=== PATIENT | female | born 1975 | race Caucasian/White ===

== ENCOUNTER → 2018-08-31 07:45 | Outpatient (CLI) | payer OTHER, SELFPAY ==
--- NOTE | 2018-08-31 | DI.MG.S_ITS ---
BILATERAL DIGITAL SCREENING MAMMOGRAM 3D/2D WITH CAD: 08/31/2018 CLINICAL: Routine screening. Comparison is made to exams dated: 08/19/2016 mammogram, 07/07/2015 mammogram - [facility], and 07/02/2013 mammogram - [facility]. There are scattered fibroglandular elements in both breasts. Current study was also evaluated with a Computer Aided Detection (CAD) system. No significant masses, calcifications, or other findings are seen in either breast. There has been no significant interval change. IMPRESSION: NEGATIVE There is no mammographic evidence of malignancy. A 1 year screening mammogram is recommended. This exam was interpreted at Station ID: [id number]. NOTE: For mammograms, a report in lay terms will be sent to the patient. Approximately 15% of breast malignancies will not be visualized mammographically. In the management of a palpable breast mass, a negative mammogram must not discourage biopsy of a clinically suspicious lesion. Electronically Signed By: Lluvia brown/kiel:08/31/2018 09:08:01 letter sent: Normal Exam ACR BI-RADS Category 1: Negative 3341F
== END ==
PROVIDERS: Family Provider Nurse Practitioner Family; PCP Family Medicine; Visit Provider Family Medicine
DX: Z12.31 Encounter for screening mammogram for malignant neoplasm of breast (principal)
CPT/HCPCS: 77063; 77067

== ENCOUNTER → 2019-11-04 13:41 | Outpatient (CLI) | payer OTHER, SELFPAY ==
--- NOTE | 2019-11-04 13:42 | DI.MG.S_ITS ---
BILATERAL DIGITAL DIAGNOSTIC MAMMOGRAM 3D/2D: 11/04/2019 CLINICAL: Left breast pain. Comparison is made to exams dated: 08/31/2018 mammogram, 08/19/2016 mammogram, 07/07/2015 mammogram - [facility], 07/02/2013 mammogram - [facility], and 08/13/2012 mammogram - [facility]. There are scattered fibroglandular elements in both breasts. There is a 0.6 cm round asymmetry in the left breast posterior depth central to the nipple seen on the mediolateral oblique view only. This is seen in additional views. This is more prominent. No other significant masses, calcifications, or other findings are seen in either breast. IMPRESSION: INCOMPLETE: NEEDS ADDITIONAL IMAGING EVALUATION 1) No mass or significant calcifications in the region of focal pain in the left breast. A targeted ultrasound is recommended and will immediately follow. 2) The 0.6 cm round asymmetry in the left breast is indeterminate. A targeted ultrasound is recommended and will immediately follow. This exam was interpreted at Station ID: [id number]. NOTE: For mammograms, a report in lay terms will be sent to the patient. Approximately 15% of breast malignancies will not be visualized mammographically. In the management of a palpable breast mass, a negative mammogram must not discourage biopsy of a clinically suspicious lesion. Electronically Signed By: Juan C Betancur M.D. slc/:11/04/2019 15:33:25 ACR BI-RADS Category 0: Incomplete 3340F
--- NOTE | 2019-11-04 13:42 | DI.US.S_ITS ---
LIMITED ULTRASOUND OF LEFT BREAST: 11/04/2019 CLINICAL: Focal left breast pain. Comparison is made to exams dated: 11/04/2019 mammogram, 08/31/2018 mammogram, 08/19/2016 mammogram, 07/07/2015 mammogram - [facility], and 07/02/2013 mammogram - [facility]. Color flow and real-time ultrasound of the left breast 3 o'clock, and central/ retroareolar regions were performed. Martins scale images of the real-time examination were reviewed. There is a 0.7 cm x 0.5 cm x 0.2 cm oval cyst with a septated internal wall in the left breast at 3 o'clock anterior depth 2 cm from the nipple. This oval cyst is hypoechoic with a well-defined boundary and no posterior acoustic shadowing or enhancement. This correlates to the reported pain. Color flow imaging demonstrates that there is no vascularity present. This is not seen on diagnostic mammogram. No sonographic abnormality in the left breast central to the nipple posterior depth in the region of the asymmetry seen on mammogram. IMPRESSION: PROBABLY BENIGN 1) The 0.7 cm oval cyst in the left breast at 3 o'clock anterior depth in the region of focal pain is consistent with a complicated cyst and is probably benign. 2) No sonographic abnormality in the left breast central to the nipple posterior depth in the region of the asymmetry seen on mammogram. A follow-up left mammogram and an ultrasound in 6 months is recommended to demonstrate stability. This exam was interpreted at Station ID: [id number]. Electronically Signed By: Juan C Betancur M.D. [facility] [place]/:11/04/2019 15:46:52 letter sent: Followup Recommended Ultrasound BI-RADS: 3 Probably benign
== END ==
PROVIDERS: Family Provider Nurse Practitioner Family; PCP Family Medicine; Referring Provider Family Medicine; Visit Provider Family Medicine
DX: R92.8 Other abnormal and inconclusive findings on diagnostic imaging of breast (principal); N64.4 Mastodynia; N60.01 Solitary cyst of right breast
CPT/HCPCS: 76642; 77066; G0279

== ENCOUNTER → 2020-06-03 14:13 | Outpatient (CLI) | payer OTHER, SELFPAY ==
--- NOTE | 2020-06-03 14:16 | DI.MG.S_ITS ---
UNILATERAL LEFT DIGITAL DIAGNOSTIC MAMMOGRAM 3D/2D SHORT-TERM FOLLOW-UP: 06/03/2020 CLINICAL: Patient returns for a 6 month follow up of the left breast. Comparison is made to exams dated: 11/04/2019 mammogram, 08/31/2018 mammogram, and 08/19/2016 mammogram - [facility]. There are scattered fibroglandular elements in left breast. Redemonstration of previously described 0.6 cm round asymmetry in the left breast posterior depth central to the nipple seen on the mediolateral oblique view only. This is less prominent and was not seen on the prior ultrasound. Additionally, previously described complicated cyst on comparison ultrasound was not seen mammographically. No findings today at the 3:00 axis, anterior depth. No other significant masses or calcifications are seen in the breast. IMPRESSION: INCOMPLETE: NEEDS ADDITIONAL IMAGING EVALUATION The previously described 0.6 cm round asymmetry in the left breast is again noted and resembles a cyst, fibroglandular tissue, or a lymph node and is indeterminate. An ultrasound is recommended for further evaluation and is scheduled to immediately follow this examination. Also, the ultrasound will be needed to evaluate previously described complicated cyst at the 3:00 axis, anterior depth. This exam was interpreted at Station ID: [id number]. NOTE: For mammograms, a report in lay terms will be sent to the patient. Approximately 15% of breast malignancies will not be visualized mammographically. In the management of a palpable breast mass, a negative mammogram must not discourage biopsy of a clinically suspicious lesion. Electronically Signed By: Hi Leary M.D. aty/:06/03/2020 15:13:09 ACR BI-RADS Category 0: Incomplete 3340F
--- NOTE | 2020-06-03 14:16 | DI.US.S_ITS ---
ULTRASOUND OF LEFT BREAST: 06/03/2020 CLINICAL: Patient returns today to evaluate a focal asymmetry in the left breast. Comparison is made to exams dated: 06/03/2020 mammogram, 11/04/2019 ultrasound, 11/04/2019 mammogram, 08/31/2018 mammogram, 08/19/2016 mammogram, and 07/07/2015 mammogram - [facility]. Color flow and real-time ultrasound of the left breast were performed. Martins scale images of the real-time examination were reviewed. There is a 0.5 cm x 0.4 cm x 0.2 cm oval cyst with a septated internal wall in the left breast at 3 o'clock anterior depth 2 cm from the nipple. This oval cyst is hypoechoic with a well-defined boundary and no posterior acoustic shadowing or enhancement. This abnormality is decreased in size and correlates to the reported pain. Color flow imaging demonstrates that there is no vascularity present. As before, there is no sonographic correlate or abnormality seen in the posterior left breast for the subcentimeter asymmetry seen only on the mediolateral oblique and lateral views central to the nipple posterior depth. IMPRESSION: PROBABLY BENIGN The 0.5 cm x 0.4 cm x 0.2 cm oval cyst in the left breast at 3 o'clock anterior depth is consistent with a complicated cyst and is probably benign. As before, there is no sonographic correlate or abnormality seen in the posterior left breast for the subcentimeter asymmetry seen only on the mediolateral oblique and lateral views central to the nipple posterior depth. A follow-up left mammogram and a left ultrasound in 6 months is recommended to demonstrate stability. The patient will also be due for screening mammogram of the contralateral breast at that time. Findings and recommendations were conveyed to the patient during today's evaluation. This exam was interpreted at Station ID: [id number]. Electronically Signed By: Hi Leary M.D. aty/:06/03/2020 16:13:27 letter sent: Followup Recommended Ultrasound BI-RADS: 3 Probably benign
== END ==
PROVIDERS: Family Provider Nurse Practitioner Family; PCP Family Medicine; Referring Provider Family Medicine; Visit Provider Family Medicine
DX: R92.8 Other abnormal and inconclusive findings on diagnostic imaging of breast (principal); N60.02 Solitary cyst of left breast
CPT/HCPCS: 76642; 77065; G0279

== ENCOUNTER → 2020-08-20 07:58 | Outpatient (CLI) | payer OTHER, SELFPAY ==
[2020-08-20] MEDS: COVID-19 VACC, Ad26(JANSSEN)/PF 0.5 ML IM (08:04)
== END ==
PROVIDERS: Family Provider Nurse Practitioner Family; PCP Family Medicine; Visit Provider Internal Medicine
DX: Z23 Encounter for immunization (principal)
CPT/HCPCS: 0031A; 91303

== ENCOUNTER → 2021-01-06 10:16 | Outpatient (CLI) | payer OTHER, SELFPAY ==
[2021-01-06 11:34] LABS: COVID19 -Nasal RAPID Negative (Negative)
== END ==
PROVIDERS: Family Provider Nurse Practitioner Family; PCP Family Medicine; Visit Provider Physician Assistant
DX: Z20.822 Contact with and (suspected) exposure to COVID-19 (principal); J02.9 Acute pharyngitis, unspecified
CPT/HCPCS: 87635

== ENCOUNTER → 2021-01-14 08:40 | Outpatient (CLI) | payer OTHER, SELFPAY ==
--- NOTE | 2021-01-14 08:41 | DI.US.S_ITS ---
ULTRASOUND OF LEFT BREAST: 01/14/2021 CLINICAL: 6 month follow-up of cysts. Comparison is made to exams dated: 01/14/2021 mammogram, 06/03/2020 ultrasound, 06/03/2020 mammogram, 11/04/2019 ultrasound, 11/04/2019 mammogram, and 08/31/2018 mammogram - [facility]. Color flow and real-time ultrasound of the left breast were performed. Martins scale images of the real-time examination were reviewed. There is a new 0.4 cm x 0.3 cm x 0.3 cm oval cyst in the left breast at 3 o'clock anterior depth 2 cm from the nipple. This oval cyst is essentially anechoic with minimal internal echoes. This was not seen on the prior mammogram. Color flow imaging demonstrates that there is no vascularity present. The previously described 0.5 cm x 0.4 cm x 0.2 cm oval cyst with a septated internal wall in the left breast at 3 o'clock middle depth 2 cm from the nipple is no longer seen and is consistent with a benign process. Additionally, there is a new 0.5 cm x 0.3 cm x 0.5 cm oval cyst in the left breast at 11 o'clock middle depth 4 cm from the nipple. This oval cyst is anechoic with a well-defined boundary and posterior acoustic enhancement. This correlates with mammography findings. Color flow imaging demonstrates that there is no vascularity present. IMPRESSION: PROBABLY BENIGN The new 0.4 cm x 0.3 cm x 0.3 cm oval cyst in the left breast at 3 o'clock anterior depth is consistent with a complicated cyst and is probably benign. The 0.5 cm x 0.3 cm x 0.5 cm oval simple cyst in the left breast at 11 o'clock middle depth correlates with today's mammographic findings and is consistent with a benign simple cyst. A follow-up bilateral mammogram and a left ultrasound in 12 months is recommended to demonstrate stability versus resolution. Findings and recommendations were conveyed to the patient during today's evaluation. This exam was interpreted at Station ID: [id number]. Electronically Signed By: Hi Leary M.D. aty/:01/14/2021 11:09:33 letter sent: Followup Recommended Ultrasound BI-RADS: 3 Probably benign
--- NOTE | 2021-01-14 08:41 | DI.MG.S_ITS ---
BILATERAL DIGITAL DIAGNOSTIC MAMMOGRAM 3D/2D: 01/14/2021 CLINICAL: Short term follow up of the left breast, due for bilateral imaging. Comparison is made to exams dated: 06/03/2020 ultrasound, 06/03/2020 mammogram, 11/04/2019 ultrasound, and 11/04/2019 mammogram - [facility]. There are scattered fibroglandular elements in both breasts. The previously described 0.6 cm round asymmetry in the left breast posterior depth central to the nipple seen on the mediolateral oblique view only. This is less prominent and decreased in size. There also is a 0.7 cm oval equal density mass in the left breast at 11 o'clock middle depth. This is more prominent and increased in size. No other significant masses, calcifications, or other findings are seen in either breast. IMPRESSION: INCOMPLETE: NEEDS ADDITIONAL IMAGING EVALUATION The 0.6 cm round asymmetry in the left breast posterior depth central to the nipple seen on the mediolateral oblique view only likely correlates with a complicated cyst seen on comparison ultrasounds but remains indeterminate. An ultrasound is recommended for further evaluation and is scheduled to immediately follow this examination. The 0.7 cm oval equal density mass in the left breast at 11 o'clock middle depth resembles a cyst or a lymph node and is indeterminate. An ultrasound is recommended for further evaluation and is scheduled to immediately follow this examination. This exam was interpreted at Station ID: [id number]. NOTE: For mammograms, a report in lay terms will be sent to the patient. Approximately 15% of breast malignancies will not be visualized mammographically. In the management of a palpable breast mass, a negative mammogram must not discourage biopsy of a clinically suspicious lesion. Electronically Signed By: Hi Leary M.D. aty/:01/14/2021 09:32:37 ACR BI-RADS Category 0: Incomplete 3340F
== END ==
PROVIDERS: Family Provider Nurse Practitioner Family; PCP Family Medicine; Referring Provider Family Medicine; Visit Provider Family Medicine
DX: R92.8 Other abnormal and inconclusive findings on diagnostic imaging of breast (principal); N60.02 Solitary cyst of left breast
CPT/HCPCS: 76642; 77066; G0279

== ENCOUNTER → 2021-10-25 09:20 | Outpatient (CLI) | payer OTHER, SELFPAY ==
[2021-10-25 10:57] LABS: COVID19 -Nasal RAPID Negative (Negative)
== END ==
PROVIDERS: Family Provider Nurse Practitioner Family; PCP Family Medicine; Visit Provider Surgery
DX: Z20.822 Contact with and (suspected) exposure to COVID-19 (principal); Z01.812 Encounter for preprocedural laboratory examination
CPT/HCPCS: 87635; C9803

== ENCOUNTER 2021-10-26 10:52 | Day surgery (SDC) | payer OTHER, SELFPAY ==
[2021-10-26 11:07] VITALS: BMI 19.8
[2021-10-26 11:19] VITALS: BP 121/67; PULSE 73; RESP 16; TEMP 36.6; O2SAT 100
[2021-10-26] MEDS: LACTATED RINGERS 1,000 ML 200 ML IV (11:21)
--- NOTE | 2021-10-26 11:33 | PM.HP.1 ---
History of Present Illness History of Present Illness Date Patient Seen: 10/26/21 Time Patient Seen: 11:33 Chief complaint: SDC Narrative: The patient presents for colorectal screening. They have never had any previous examination for such. No personal or family history of colon cancer. On further history denies any recent gastrointestinal symptoms. No nausea, vomiting, abdominal pain, loss of appetite, unexplained weight loss, change in bowel habits, diarrhea, constipation, melena, hematochezia, or bright red blood per rectum. 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) Surgical History Anesthesia History of removal of cyst (~2013) Family & Social History Family History Father Cancer PKD (polycystic kidney disease) Mother Hypertension Mental health problem Brother Mental health problem Brother PKD (polycystic kidney disease) Grandfather Cancer Grandfather PKD (polycystic kidney disease) Family/Other Mental health problem Social History: household members family,children Tobacco & Substance use: Smoking Status Never smoker alcohol intake current alcohol intake frequency a few times a week Substance Use Type does not use Meds Home Medications and Allergies Home Medications Medication Instructions Recorded Confirmed Type escitalopram oxalate 20 mg tablet 20 mg PO DAILY #90 tabs 07/07/21 10/26/21 Rx Allergies Allergy/AdvReac Type Severity Reaction Status Date / Time No Known Drug Allergies Allergy Verified 10/26/21 11:05 Exam Vital Signs (past 8 hours): - 10/26/21 11:19 Temperature 97.8 F Pulse Rate 73 Respiratory Rate 16 Blood Pressure 121/67 Pulse Oximetry 100 Oxygen Delivery Method Room Air Oxygen Delivery Method Room Air Narrative Exam Narrative: General adult woman alert oriented no Chest nonlabored respiration Extremities warm well perfused Assessment & Plan Assessment & Plan narrative: The patient requires colorectal screening and colonoscopy is recommended. Technical details were discussed. Risks, benefits, alternatives explained. Risks including but not limited to myocardial infarction, aspiration, bleeding, pain, missed lesion, incomplete examination, need for further radiographic studies, colonic perforation, and need for major abdominal surgery were discussed. All questions were answered to their satisfaction, and they are in agreement with this plan. Time Spent With Patient Critical Care time: I spent a total of [] minutes of critical care time on this patient's care today; this time is exclusive of procedural time.
[2021-10-26] MEDS: fentaNYL 250 MCG/5 ML INJ IV (12:09)
--- NOTE | 2021-10-26 12:09 | P.OP.COLON_ITS ---
Operative Date/Time/Diagnoses Date of procedure: 10/26/21 Time of procedure: 12:09 Pre-op diagnosis: Screening Post-op diagnosis: same Procedure & Clinicians Study performed: colonoscopy Same procedure as scheduled: Yes Indications: screening Surgeon: Cyrus Hess Procedure Notes Procedure in detail: Medications: Conscious sedation using 6mg IV midazolam and 150mcg IV of fentanyl The history and physical was performed/updated and the patient is ASA class is 2. The procedure was discussed in detail with the patient. Potential risks complications including infection, bleeding, missed diagnosis, perforation, need for surgery, and were explained. Their questions were answered and informed consent was obtained. Patient was brought to the procedure room and placed standard monitoring equipment. The patient's vital signs were monitored continuously throughout the entire procedure. Prior to starting time-out was performed. The patient was placed in the left lateral recumbent position. Procedural sedation was adminis tered. Examination began with a thorough inspection of the perianal area there was no evidence of fissures, fistulae, external hemorrhoids or cutaneous malignancy. The colonoscopy scope was then placed into the anal canal and was advanced to the cecum, which was identified by the ileocecal valve, the appendiceal orifice and the confluence of the taenia. The scope was then slowly withdrawn examining colon thoroughly in all directions, irrigating it of any residual stool. FINDINGS 1. Normal healthy colon 2. No masses or polyps The patient tolerated the procedure well. They will be discharged once criteria are met. The prep was of good/excellent quality. The withdrawl time was 7 minutes. The sedation time was 22minutes. Specimen(s): none sent Complications: none Impression: Normal colonoscopy Post-procedure Recommendations: Colonoscopy in 10 years Disposition: same day surgery
[2021-10-26] MEDS: MIDAZOLAM 5 MG/5 ML VIAL IV (12:10)
[2021-10-26 12:13] VITALS: BP 96/56; PULSE 58; RESP 12; TEMP 36.4; O2SAT 98
[2021-10-26 12:18] VITALS: BP 94/52; PULSE 56; RESP 12; O2SAT 99
[2021-10-26 12:23] VITALS: BP 96/58; PULSE 56; RESP 12; O2SAT 99
[2021-10-26 12:28] VITALS: BP 99/71; PULSE 64; RESP 16; O2SAT 99
== END 2021-10-26 12:49 | disposition home or self-care (01) ==
PROVIDERS: Family Provider Nurse Practitioner Family; PCP Family Medicine; Referring Provider Surgery; Visit Provider Surgery
PROC: 0DJD8ZZ Inspection of Lower Intestinal Tract, Via Natural or Artificial Opening Endoscopic (ICD-10-PCS; CPT 45378; principal; 2021-10-26 15:15)
DX: Z12.11 Encounter for screening for malignant neoplasm of colon (principal)
CPT/HCPCS: 45378; 45380; 99152; J2250; J3010

== ENCOUNTER → 2022-07-21 07:53 | Outpatient (CLI) | payer OTHER, SELFPAY ==
[2022-07-21 08:42] LABS: Add Manual Diff / Slide Review NO; Basophils Absolute Auto 100 /uL (0-100); Basophils Percent Auto 1.5 % (0-2); Eosinophils Absolute Auto 100 /uL (0-450); Eosinophils Percent Auto 4.1 % (2-4); Hematocrit 37.9 % (36-46); Hemoglobin 12.6 g/dL (12.0-16.0); Lymphocytes Absolute Auto 1400 /uL (1100-4500); Lymphocytes Percent Auto 38.1 % (25-40); Mean Corpuscular HGB Conc 33.1 % (30-36); Mean Corpuscular Hemoglobin 30.7 PG (26-34); Mean Corpuscular Volume 92.5 fL (80-100); Monocytes Absolute Auto 700 /uL (0-900); Monocytes Percent Auto 18.1 % (3-14); Neutrophils Absolute Auto 1400 /uL (1500-7000); Neutrophils Percent Auto 38.2 % (50-75); Platelet Count 219 X10^3/uL (150-400); Red Cell Distribution Width 13.4 % (11.6-14.8); White Blood Cell Count 3.6 X10^3/uL (4.5-11.0)
[2022-07-21 09:19] LABS: Alanine Aminotransferase 20 IU/L (<35); Albumin 4.1 g/dL (3.5-5.0); Albumin Globulin Ratio 1.5 (1.0-2.8); Alkaline Phosphatase 73 U/L (38-126); Aspartate Aminotransferase 32 IU/L (14-36); BUN Creatinine Ratio 14.5 (6-22); Bilirubin Total 0.4 mg/dL (0.2-1.3); Blood Urea Nitrogen 11 mg/dL (7-17); Calcium 8.9 mg/dL (8.4-10.2); Carbon Dioxide 27 mmol/L (22-32); Chloride 101 mmol/L (98-107); Cholesterol 214 mg/dL (140-199); Estimated Glomerular Filt Rate > 60 mL/min (>60); Globulin 2.8 g/dL (1.7-4.1); Glucose 83 mg/dL (70-100); HEMOLYSIS < 15 (0-50); Potassium 4.2 mmol/L (3.4-5.1); Sodium 133 mmol/L (137-145); Total Protein 6.9 g/dL (6.3-8.2); Triglycerides 49 mg/dL (35-150)
[2022-07-21 09:28] LABS: LDL Cholesterol Calculated 67 mg/dL (<100)
[2022-07-21 09:29] LABS: HDL Cholesterol 137 mg/dL (40-60)
[2022-07-21 09:50] LABS: Thyroid Stimulating Hormone 1.91 uIU/mL (0.47-4.68)
== END ==
PROVIDERS: Family Provider Nurse Practitioner Family; PCP Family Medicine; Referring Provider Family Medicine; Visit Provider Family Medicine
DX: Z00.00 Encounter for general adult medical examination without abnormal findings (principal); Z82.71 Family history of polycystic kidney
CPT/HCPCS: 36415; 80053; 80061; 84443; 85025

== ENCOUNTER → 2022-08-02 08:49 | Outpatient (CLI) | payer OTHER, SELFPAY ==
--- NOTE | 2022-08-02 08:50 | DI.MG.S_ITS ---
BILATERAL DIGITAL DIAGNOSTIC MAMMOGRAM 3D/2D SHORT-TERM FOLLOW-UP: 08/02/2022 CLINICAL: Short term follow of the left breast; Due Bilateral. Comparison is made to exams dated: 01/14/2021 mammogram, 06/03/2020 mammogram, and 11/04/2019 mammogram - [facility]. There are scattered areas of fibroglandular density in both breasts (category b / 25%-50% glandular tissue). There is a 0.6 cm round asymmetry in the left breast posterior depth central to the nipple seen on the mediolateral oblique view only. This is not significantly changed. There also is a 0.7 cm oval equal density mass in the left breast at 11 o'clock middle depth. This is not significantly changed. No other significant masses, calcifications, or other findings are seen in either breast. IMPRESSION: INCOMPLETE: NEEDS ADDITIONAL IMAGING EVALUATION The 0.6 cm round asymmetry in the left breast posterior depth central to the nipple seen on the mediolateral oblique view only is consistent with a cyst and is indeterminate. An ultrasound is recommended for further evaluation and is scheduled to immediately follow this examination. The 0.7 cm oval equal density mass in the left breast at 11 o'clock middle depth resembles a cyst or a lymph node and is indeterminate. An ultrasound is recommended for further evaluation and is scheduled to immediately follow this examination. Based on the Tyrer Cuzick model (a risk assessment model) the patient's lifetime risk is 9.5% and her 10 year risk is 2.0%. According to the ACR, ACS, and NCCN guidelines, an annual breast MRI exam along with mammogram is recommended if the patient's lifetime risk is 20% or greater. This exam was interpreted at Station ID: [id number]. NOTE: For mammograms, a report in lay terms will be sent to the patient. Approximately 15% of breast malignancies will not be visualized mammographically. In the management of a palpable breast mass, a negative mammogram must not discourage biopsy of a clinically suspicious lesion. Electronically Signed By: Hi Leary M.D. aty/:08/02/2022 09:19:05 ACR BI-RADS Category 0: Incomplete 3340F
--- NOTE | 2022-08-02 08:50 | DI.US.S_ITS ---
ULTRASOUND OF LEFT BREAST: 08/02/2022 CLINICAL: Late 12 month follow-up of cysts. Comparison is made to exams dated: 08/02/2022 mammogram, 01/14/2021 ultrasound, 01/14/2021 mammogram, 06/03/2020 ultrasound, 06/03/2020 mammogram, and 11/04/2019 ultrasound - [facility]. Color flow and real-time ultrasound of the left breast were performed. Martins scale images of the real-time examination were reviewed. There is a 0.4 cm x 0.2 cm x 0.3 cm oval cyst in the left breast at 3 o'clock anterior depth 2 cm from the nipple. This oval cyst is anechoic. This abnormality is decreased in size and less prominent and was not seen on the prior mammogram. Color flow imaging demonstrates that there is no vascularity present. There also is a 0.4 cm x 0.1 cm x 0.3 cm oval cyst in the left breast at 11 o'clock middle depth 4 cm from the nipple. This oval cyst is anechoic with a well-defined boundary and posterior acoustic enhancement. This abnormality is decreased in size and less prominent and correlates with mammography findings. Color flow imaging demonstrates that there is no vascularity present. IMPRESSION: BENIGN There is no sonographic evidence of malignancy. The 0.4 cm x 0.2 cm x 0.3 cm oval cyst in the left breast at 3 o'clock anterior depth is consistent with a complicated cyst and is benign. The 0.4 cm x 0.1 cm x 0.3 cm oval cyst in the left breast at 11 o'clock middle depth is consistent with a complicated cyst and is benign. Return to annual mammogram screening schedule is recommended. Findings and recommendations were conveyed to the patient during today's evaluation. This exam was interpreted at Station ID: [id number]. Electronically Signed By: Hi Leary M.D. aty/:08/02/2022 09:52:18 Ultrasound BI-RADS: 2 Benign
== END ==
PROVIDERS: Family Provider Nurse Practitioner Family; PCP Family Medicine; Referring Provider Family Medicine; Visit Provider Family Medicine
DX: R92.8 Other abnormal and inconclusive findings on diagnostic imaging of breast (principal); N60.02 Solitary cyst of left breast
CPT/HCPCS: 76642; 77066; G0279

== ENCOUNTER → 2023-02-17 08:12 | Outpatient (CLI) | payer OTHER, SELFPAY ==
[2023-02-17 09:06] LABS: Alanine Aminotransferase 21 IU/L (<35); Albumin 3.7 g/dL (3.5-5.0); Albumin Globulin Ratio 1.4 (1.0-2.8); Alkaline Phosphatase 63 U/L (38-126); Aspartate Aminotransferase 31 IU/L (14-36); BUN Creatinine Ratio 15.7 (6-22); Bilirubin Total 0.4 mg/dL (0.2-1.3); Blood Urea Nitrogen 11 mg/dL (7-17); Calcium 9.1 mg/dL (8.4-10.2); Carbon Dioxide 27 mmol/L (22-32); Chloride 103 mmol/L (98-107); Cholesterol 194 mg/dL (140-199); Estimated Glomerular Filt Rate > 60 mL/min (>60); Globulin 2.7 g/dL (1.7-4.1); Glucose 83 mg/dL (70-100); HDL Cholesterol 109 mg/dL (40-60); HEMOLYSIS < 15 (0-50); LDL Cholesterol Calculated 72 mg/dL (<100); Sodium 135 mmol/L (137-145); Total Protein 6.4 g/dL (6.3-8.2); Triglycerides 66 mg/dL (35-150)
== END ==
PROVIDERS: Family Provider Nurse Practitioner Family; PCP Family Medicine; Referring Provider Family Medicine; Visit Provider Family Medicine
DX: F32.9 Major depressive disorder, single episode, unspecified (principal); E78.00 Pure hypercholesterolemia, unspecified
CPT/HCPCS: 36415; 80053; 80061

== ENCOUNTER → 2023-08-04 14:46 | Outpatient (CLI) | payer OTHER, SELFPAY ==
--- NOTE | 2023-08-04 14:47 | DI.MG.S_ITS ---
BILATERAL DIGITAL SCREENING MAMMOGRAM 3D/2D WITH CAD: 08/04/2023 CLINICAL: Routine screening. Comparison is made to exams dated: 08/02/2022 mammogram, 01/14/2021 mammogram, 06/03/2020 mammogram, 11/04/2019 mammogram, and 08/31/2018 mammogram - [facility]. There are scattered areas of fibroglandular density in both breasts (category b / 25%-50% glandular tissue). Current study was also evaluated with a Computer Aided Detection (CAD) system. No significant masses, calcifications, or other findings are seen in either breast. There has been no significant interval change. IMPRESSION: NEGATIVE There is no mammographic evidence of malignancy. A 1 year screening mammogram is recommended. Based on the Tyrer Cuzick model (a risk assessment model) the patient's lifetime risk is 9.6% and her 10 year risk is 2.1%. According to the ACR, ACS, and NCCN guidelines, an annual breast MRI exam along with mammogram is recommended if the patient's lifetime risk is 20% or greater. This exam was interpreted at Station ID: [id number]. NOTE: For mammograms, a report in lay terms will be sent to the patient. Approximately 15% of breast malignancies will not be visualized mammographically. In the management of a palpable breast mass, a negative mammogram must not discourage biopsy of a clinically suspicious lesion. Electronically Signed By: Hi wilder/kiel:08/07/2023 07:11:00 letter sent: Normal Exam ACR BI-RADS Category 1: Negative 3341F
== END ==
LOC: MAMMO 14:47
PROVIDERS: Family Provider Nurse Practitioner Family; PCP Family Medicine; Referring Provider Family Medicine; Visit Provider Family Medicine
DX: Z12.31 Encounter for screening mammogram for malignant neoplasm of breast (principal); R92.323 Mammographic fibroglandular density, bilateral breasts
CPT/HCPCS: 77063; 77067

== ENCOUNTER → 2024-08-30 16:14 | Outpatient (CLI) | payer OTHER, SELFPAY ==
--- NOTE | 2024-08-30 16:16 | DI.MG.S_ITS ---
MM screening mammo BI: 08/30/2024. BI-RADS: 1 CLINICAL: 48-year old female for bilateral screening mammogram. Tyrer-Cuzick lifetime risk of 7.5%. No personal or first-degree family history of breast cancer. PRIOR EXAMS 08/04/2023, 08/02/2022, 01/14/2021, 06/03/2020, 11/04/2019, 08/31/2018, 08/19/2016, 07/07/2015. MAMMOGRAPHY TECHNIQUE: 2D and 3D (tomosynthesis) digital mammographic views obtained, with additional images as needed for full coverage. Current study was also evaluated with a Computer Aided Detection (CAD) system. DENSITY B. There are scattered areas of fibroglandular density. MAMMOGRAPHY FINDINGS Bilateral: No suspicious mass, asymmetry, microcalcification, or other abnormality seen. IMPRESSION: * No evidence of malignancy. RECOMMENDATIONS Bilateral * Annual screening mammography. OVERALL ASSESSMENT CATEGORY BI-RADS-1: Negative. The [employer] recommends annual screening mammography beginning at age 40 for women with average risk of breast cancer. ELECTRONICALLY SIGNED: Rosario Mccoy M.D. on 09/02/2024 at 11:58:38 AM PT Interpreting Station ID: [id number]
== END ==
PROVIDERS: Family Provider Nurse Practitioner Family; PCP Family Medicine; Referring Provider Family Medicine; Visit Provider Family Medicine
DX: Z12.31 Encounter for screening mammogram for malignant neoplasm of breast (principal)
CPT/HCPCS: 77063; 77067

== ENCOUNTER 2024-09-27 15:36 | Emergency (ER) | payer OTHER, SELFPAY ==
[2024-09-27 15:43] VITALS: BP 126/65; PULSE 67; RESP 16; TEMP 36.4; O2SAT 99; BMI 21.2
[2024-09-27 16:23] LABS: Add Manual Diff / Slide Review NO; Basophils Absolute Auto 100 /uL (0-100); Basophils Percent Auto 1.1 % (0-2); Eosinophils Absolute Auto 100 /uL (0-450); Eosinophils Percent Auto 1.4 % (2-4); Hematocrit 36.6 % (36-46); Hemoglobin 12.5 g/dL (12.0-16.0); Lymphocytes Absolute Auto 2100 /uL (1100-4500); Lymphocytes Percent Auto 41.9 % (25-40); Mean Corpuscular HGB Conc 34.2 % (30-36); Mean Corpuscular Hemoglobin 30.8 PG (26-34); Mean Corpuscular Volume 90.1 fL (80-100); Monocytes Absolute Auto 600 /uL (0-900); Monocytes Percent Auto 13.1 % (3-14); Neutrophils Absolute Auto 2100 /uL (1500-7000); Neutrophils Percent Auto 42.5 % (50-75); Platelet Count 255 X10^3/uL (150-400); Red Blood Cell Count 4.06 X10^6/uL (4.0-5.2); Red Cell Distribution Width 14.3 % (11.6-14.8); White Blood Cell Count 4.9 X10^3/uL (4.5-11.0)
[2024-09-27 16:33] LABS: Alanine Aminotransferase 23 IU/L (<35); Albumin 4.4 g/dL (3.5-5.0); Albumin Globulin Ratio 1.6 (1.0-2.8); Alkaline Phosphatase 66 U/L (38-126); Aspartate Aminotransferase 37 IU/L (14-36); BUN Creatinine Ratio 7.4 (6-22); Bilirubin Total 0.4 mg/dL (0.2-1.3); Blood Urea Nitrogen 5 mg/dL (7-17); Calcium 9.3 mg/dL (8.4-10.2); Carbon Dioxide 23 mmol/L (22-32); Chloride 104 mmol/L (98-107); Estimated Glomerular Filt Rate > 60 mL/min (>60); Globulin 2.8 g/dL (1.7-4.1); Glucose 95 mg/dL (70-99); HEMOLYSIS < 15 (0-50); Lipase 58 U/L (23-300); Potassium 3.8 mmol/L (3.4-5.1); Sodium 134 mmol/L (137-145); Total Protein 7.2 g/dL (6.3-8.2)
[2024-09-27 17:16] VITALS: BP 140/72; PULSE 64; O2SAT 100
--- NOTE | 2024-09-27 17:31 | PC.NURSE ---
iv placed by another nurse
== END 2024-09-27 17:55 | disposition left against medical advice (07) ==
PROVIDERS: Emergency Provider Emergency Medicine; Family Provider Nurse Practitioner Family; PCP Family Medicine
DX: R10.9 Unspecified abdominal pain (principal)
CPT/HCPCS: 80053; 81003; 83690; 85025; 99282